=== PATIENT | male | born 1970 | race Caucasian/White ===

== ENCOUNTER 2021-05-13 07:48 | Day surgery (SDC) | payer OTHER ==
[2021-05-13 08:29] VITALS: BMI 36.5
[2021-05-13] MEDS ORDERED: MIDAZOLAM HCL 2 MG/2 ML SINGLE DOSE VIAL ONE (08:56)
[2021-05-13] MEDS ORDERED: LIDOCAINE HCL 2% (20ML MULTI-DOSE VIAL) ONE (09:17)
[2021-05-13 10:30] VITALS: BP 113/62; PULSE 62
[2021-05-13 10:54] VITALS: TEMP 97.3
== END 2021-05-13 10:40 | disposition home or self-care (01) ==
LOC: FASU 07:48
PROVIDERS: ATTEND Orthopaedic Surgery Hand Surgery
PROC: 0LN80ZZ Release Left Hand Tendon, Open Approach (ICD-10-PCS; principal; 2021-05-13 09:53)
DX: M65.312 Trigger thumb, left thumb (principal)
CPT/HCPCS: 82962